=== PATIENT | female | born 1970 | race Hispanic/Latino ===

== ENCOUNTER 2017-06-30 23:27 | Emergency (ER) | payer OTHER ==
[2017-07-01 00:15] LABS: APPEARANCE,URINE Clear (CLEAR); BILIRUBIN,URINE Negative (NEGATIVE); COLOR,URINE Yellow (YELLOW); GLUCOSE, URINE (UA) Negative (NEGATIVE); KETONES,URINE Negative (NEGATIVE); LEUKOCYTE ESTERASE ,URINE Negative (NEGATIVE); NITRATE,URINE Negative (NEGATIVE); OCCULT BLOOD,URINE Negative (NEGATIVE); PROTEIN,URINE Negative (NEGATIVE); UROBILINOGEN,URINE 0.2 mg/dL (0.2-1.0)
[2017-07-01 00:16] LABS: HCG,QUAL RESULT NEGATIVE (NEGATIVE)
[2017-07-01 00:19] LABS: BASOPHILS % (AUTO) 0.3 % (0.0-5.0); EOSINOPHILS % (AUTO) 1.8 % (0.0-8.0); LYMPHOCYTES % (AUTO) 14.9 % (21.0-51.0); MEAN CORPUSCULAR HGB CONC 31.2 g/dL (32.0-36.0); MEAN CORPUSCULAR VOLUME 70.7 fL (79-99); PLATELET COUNT (AUTO) 234 K/uL (130-400); RED CELL DISTRIBUTION WIDTH 17.5 % (11.0-15.5); WHITE BLOOD COUNT (AUTO) 13.5 K/uL (4.8-10.8)
[2017-07-01] MEDS ORDERED: ONDANSETRON HCL 4 MG/2 ML VIAL ONE (00:21)
[2017-07-01] MEDS ORDERED: KETOROLAC TROMETHAMINE 30MG/ML ONE (00:25)
[2017-07-01 00:28] LABS: CARBON DIOXIDE 27 mmol/L (21-32); CHLORIDE 103 mmol/L (101-111); CREATININE 0.8 mg/dL (0.5-1.5); GLOMERULAR FILTR. RATE CALC 83 mL/min (>60); GLUCOSE,RANDOM 126 mg/dL (70-105); POTASSIUM 3.3 mmol/L (3.5-5.1); SODIUM SERUM 139 mmol/L (136-145); UREA NITROGEN, BLOOD 7 mg/dL (7-18)
[2017-07-01 00:33] LABS: ALANINE AMINOTRANSFERASE 23 U/L (12-78); ALBUMIN 3.4 g/dL (3.5-5.0); ASPARTATE AMINOTRANSFERASE 16 U/L (10-37); BILIRUBIN,DIRECT < 0.1 mg/dL (0.0-0.3); BILIRUBIN,TOTAL 0.1 mg/dL (0.2-1.0); LIPASE 183 U/L (114-286); TOTAL PROTEIN, SERUM 6.9 g/dL (6.0-8.3)
[2017-07-01 00:57] LABS: AMPHET/METH SCREEN,URINE NEGATIVE (NEGATIVE); BARBITURATE SCREEN, URINE NEGATIVE (NEGATIVE); BENZODIAZEPINES SCREEN,URINE NEGATIVE (NEGATIVE); CANNABINOID SCREEN,URINE NEGATIVE (NEGATIVE); COCAINE SCREEN,URINE NEGATIVE (NEGATIVE); OPIATE SCREEN,URINE NEGATIVE (NEGATIVE); PHENCYCLIDINE SCREEN,URINE NEGATIVE (NEGATIVE)
== END 2017-07-01 01:54 | disposition home or self-care (01) ==
LOC: EDH 23:27
DX: R10.13 Epigastric pain (principal)
CPT/HCPCS: 36415; 74176; 80048; 80076; 80305; 81003; 81025; 83690; 84702; 85025; 96361; 96374; 96375; 99285; J1885; J2405